=== PATIENT | male | born 1980 | race Caucasian/White ===

== ENCOUNTER → 2020-12-27 | Outpatient (CLI) | payer OTHER ==
[~2020-12-27] MED LIST: ASPIR 8181 MG PO; LEVAQUIN750 MG PO; METFORMIN HCL1000 MG PO; METOPROLOL SUCC50 MG PO; NEURONTIN600 MG PO; NITROGLYCERIN0.4 MG SL; NITROSTAT 0.40.4 MG SL; STEGLATRO15 MG PO; TRESIBA100 UNIT/1 SQ; TYLENOL WITH C1 EACH PO; VICTOZA 1818 MG/3 ML SQ; ZESTRIL2.5 MG PO
== END ==
LOC: HEART 5 13:42
DX: I42.0 Dilated cardiomyopathy (principal); I50.22 Chronic systolic (congestive) heart failure; R06.02 Shortness of breath; I08.1 Rheumatic disorders of both mitral and tricuspid valves
CPT/HCPCS: 93306